=== PATIENT | female | born 1985 | race Caucasian/White ===

== ENCOUNTER 2020-04-29 04:05 | Emergency (ER) | payer SELFPAY ==
--- NOTE | 2020-04-29 06:36 | NUR ---
SEE DOWNTIME FORMS
--- NOTE | 2020-04-29 06:59 | NUR ---
Patient discharged to home in stable condition. Written and verbal after care instructions given. Patient verbalizes understanding of instruction.IV removed. Catheter intact and site benign. Pressure and 4x4 applied to site. No bleeding noted.
[2020-04-29 07:00] VITALS: BP 141/89
[2020-04-29 07:46] LABS: HEMATOCRIT 37 % (33-45); HEMOGLOBIN 12.6 g/dL (11.5-14.8); MEAN CORPUSCULAR VOLUME 82 fL (82-100); RED BLOOD CELL COUNT(AUTO) 4.52 MIL/uL (4.0-5.2)
[2020-04-29 07:47] LABS: BASOPHILS % (AUTO) 0.3 % (0.0-2.0); CALCIUM, SERUM 9.1 mg/dL (8.5-10.1); CREATININE 0.9 mg/dL (0.6-1.3); EOSINOPHILS % (AUTO) 0.4 % (0.0-6.0); LYMPHOCYTES % (AUTO) 9.1 % (20.0-44.0); MEAN CORPUSCULAR HGB CONC 34 g/dl (31.0-36.0); MONOCYTES % (AUTO) 2.2 % (2.0-12.0); PLATELET COUNT (AUTO) 276 /CMM (150-450); POTASSIUM 3.3 mmol/L (3.5-5.1)
[2020-04-29 07:48] LABS: LYMPHOCYTES # (AUTO) 0.7 /CMM (0.8-4.8); MONOCYTES # (AUTO) 0.2 /CMM (0.1-1.30)
[2020-04-29 07:49] LABS: APPEARANCE,URINE Slightly Cloudy (CLEAR); COLOR,URINE YELLOW (YELLOW)
[2020-04-29 07:50] LABS: PROTEIN,URINE 30 mg/dl (NEGATIVE)
[2020-04-29 07:51] LABS: BILIRUBIN,URINE MODERATE (NEGATIVE); BLOOD, URINE LARGE Ery/uL (NEGATIVE); KETONES,URINE >80 (NEGATIVE); UGLUCOSE NEGATIVE (NEGATIVE)
[2020-04-29 07:52] LABS: LEUKOCYTE ESTERASE ,URINE NEGATIVE (NEGATIVE); NITRITE, URINE NEGATIVE (NEGATIVE)
[2020-04-29 08:41] LABS: BACTERIA,URINE Few /HPF (None Seen); MUCUS,URINE Few /LPF (None Seen); SQUAMOUS EPITHELIAL CELL,UR Few /HPF (None Seen); WBC,URINE TOO NUMEROUS TO COUN /HPF (0-3)
== END 2020-04-29 07:04 | disposition home or self-care (01) ==
LOC: ER 04:05
DX: N13.2 Hydronephrosis with renal and ureteral calculous obstruction (principal)
CPT/HCPCS: 36415; 80048-TC; 81000-TC; 84703-TC; 85025-TC; 87086-TC